=== PATIENT | male | born 1945 | race Caucasian/White ===

== ENCOUNTER 2018-06-20 19:02 | Inpatient (IN) | payer OTHER ==
[~2018-06-20] VITALS: Ht 162.6 cm; Wt 47.9 kg
[~2018-06-20 19:02] MED LIST: ASPI-496 PO; ATOR10TA9 PO; CEFD300C37 PO; CYAN50LO PO; DILT30TA33 PO; FERR325T18 PO; FINA5TAB4 PO; FOLI0.4T2 PO; HYDR12.517 PO; HYDR25TA6 PO; HYDR30SU4 PR; NITR100C6 PO; OMEP40CA6 PO; SULF1TAB24 PO; TAMS-11 PO; WARF2TAB99 PO
--- NOTE | 2018-06-20 19:23 | NUR ---
ON ARRIVAL PT HAS EYES OPEN BUT NOT TALKING. PT HAD BEEN GIVEN 200 MCG FENTYL AND 1.5 VERSED FOR PAIN. INITIAL BP 91 SYS. WHEN STIMULATING PT, BP INCREASE AND PT NOW ASKING WHAT IS GOING ON. REMAINS DROWSY. WILL CONTINUE TO MONITOR
[2018-06-20 19:29] LABS: BASOPHILS # (AUTO) 0.06 x10^3/uL (0-0.1); BASOPHILS % (AUTO) 1 % (0-1); EOSINOPHILS # (AUTO) 0.24 x10^3/uL (0-0.4); EOSINOPHILS % (AUTO) 3 % (1-7); LYMPHOCYTES # (AUTO) 0.85 x10^3/uL (1-3.4); LYMPHOCYTES % (AUTO) 10 % (22-44); MD NO; MEAN CORPUSCULAR HEMOGLOBIN 27.2 pg (27.5-34.5); MEAN CORPUSCULAR HGB CONC 32.7 g/dL (33.2-36.2); MEAN CORPUSCULAR VOLUME 83.3 fL (81-97); MEAN PLATELET VOLUME 6.9 fL (7.4-10.4); MONOCYTES # (AUTO) 0.42 x10^3/uL (0.2-0.8); MONOCYTES % (AUTO) 5 % (2-9); NEUTROPHILS # (AUTO) 6.71 x10^3/uL (1.8-6.8); NEUTROPHILS % (AUTO) 81 % (42-75); PLATELET COUNT 338 x10^3/uL (130-400); RED BLOOD COUNT 3.36 x10^6/uL (4.38-5.82); RED CELL DISTRIBUTION WIDTH 17.2 % (9.4-14.8)
[2018-06-20] MEDS ORDERED: SODIUM CHLORIDE FLUSH 10ML SYR IVF ONE (19:30)
--- NOTE | 2018-06-20 19:30 | NUR ---
KATE GAMA [phone] CALLED FOR UPDATE. NO XRAY RESULTS TO REPORT AT THIS TIME
--- NOTE | 2018-06-20 19:35 | NUR ---
TO XRAY. PT ABLE TO TELL SAUSAGE TIER HE HAS RIGHT HIP PAIN
[2018-06-20 19:38] LABS: INTERNATIONAL NORMALIZED RATIO 1.01 (0.93-1.1); PROTHROMBIN TIME 10.6 Seconds (9.6-11.5)
[2018-06-20 19:39] LABS: ALBUMIN 2.9 g/dL (3.4-5.0); ANION GAP 6 mmol/L (5-15); CALCIUM 8.6 mg/dL (8.5-10.1); CHLORIDE 108 mmol/L (98-107); CREATININE 0.92 mg/dL (0.7-1.3)
--- NOTE | 2018-06-20 20:40 | NUR ---
CHANGED COLLECTION BAG ON CATHETER FROM LEG BAG TO LARGER COLLECTION BAG. PT LYING ON RIGHT SIDE AND NOT WANTING TO BE MOVED
[2018-06-20] MEDS ORDERED: SENN1TAB94 PO (20:48)
[2018-06-20] MEDS ORDERED: METO25TA35 PO (20:48)
[2018-06-20] MEDS ORDERED: BUDE10.2 INH (20:48)
[2018-06-20] MEDS ORDERED: MULT-257 PO (20:48)
[2018-06-20] MEDS ORDERED: FERR324T5 PO (20:48)
[2018-06-20] MEDS ORDERED: SENN-177 PO (20:48)
--- NOTE | 2018-06-20 20:58 | NUR ---
CT COMPLETED. REPORT TO FLORA
--- NOTE | 2018-06-20 21:12 | NUR ---
report from crys sheppard. pt resting in room with eyes closed. ct complete. unable to complete med rec at this time. pt refusing to answer questions, only grumbling under breath. vss. no needs expressed. awaiting results.
[2018-06-20] MEDS ORDERED: SODIUM CHLORIDE FLUSH 10ML SYR IVF PRN (22:00)
--- NOTE | 2018-06-20 22:01 | NUR ---
REPORT FORM MEMO HINES TO ASSUME PT. CARE AT THIS TIME.
--- NOTE | 2018-06-20 22:17 | NUR ---
ASSISTED PT. TO REPOSITION TO AID IN COMFORT. PT. STATES "ALL I NEED IS A FEW HOT POCKETS AND I'LL BE JUST FINE". ASKED PT. ABOUT PAIN. PT. STATES "I HAVE A LITTLE PAIN BUT IF I GET A HOT POCKET THE PAIN WILL GO AWAY". PT. PROVIDED WITH CRACKERS AND STATES THIS IS FINE FOR NOW. AWAITING BED ASSIGNMENT UPSTAIRS. CALL LIGHT IN REACH. ALL SAFETY MEASURES OBSERVED.
--- NOTE | 2018-06-20 22:34 | NUR ---
SPOKE WITH PENELOPE, KATE AND CAREGIVER FOR PT. HE IS AWARE PT. TO BE ADMITTED TO HOSPITAL OVERNIGHT. PER PENELOPE PT. DOES WEAR 2L O2 AT HOME FOR COPD 28/09. PT. TO BE TRANSPORTED TO ROOM AFTER REPORT TO FLOOR RN.
--- NOTE | 2018-06-20 22:51 | NUR ---
REPORT TO [facility] BARILLAS. FLOOR READY FOR PT. TRANSPORT.
[2018-06-20 23:29] VITALS: BP 150/64
[2018-06-21] MEDS: MORPHINE SULFATE 4 MG/ML, 1ML IVPush PRN ×7 (00:29→21:26)
[2018-06-21 03:27] VITALS: BP 111/60
[2018-06-21] MEDS: FERROUS SULFATE 325 MG TABLET PO SCH ×2 (07:19→14:58)
[2018-06-21] MEDS: OMEPRAZOLE 20 MG CAPSULE.DR PO SCH (07:19)
[2018-06-21] MEDS: MULTIVITAMIN 1 TABLET PO SCH (07:19)
[2018-06-21 07:38] VITALS: BP 133/73
[2018-06-21] MEDS: LACTATED RINGERS 1,000 ML IV SCH ×2 (08:05→17:10)
[2018-06-21] MEDS: METOPROLOL TARTRATE 25 MG TABLET PO SCH (08:15)
[2018-06-21 10:39] LABS: CULTURE INDICATED? YES; MICROSCOPIC INDICATED
[2018-06-21 12:15] VITALS: BP 136/67
[2018-06-21] MEDS: BUDESONIDE 0.5 MG/2 ML INHA INH SCH ×3 (14:57→23:20)
[2018-06-21] MEDS: ALBUTEROL SULFATE 2.5 MG/3 ML NPPB SCH ×3 (14:57→22:20)
[2018-06-21 18:48] VITALS: BP 172/68
[2018-06-22] MEDS: MORPHINE SULFATE 4 MG/ML, 1ML IVPush PRN ×4 (00:19→16:12)
[2018-06-22 01:04] VITALS: BP 144/59
[2018-06-22] MEDS: LACTATED RINGERS 1,000 ML IV SCH ×2 (05:07→08:20)
[2018-06-22] MEDS: ALBUTEROL SULFATE 2.5 MG/3 ML NPPB SCH ×4 (06:00→21:00)
[2018-06-22] MEDS ORDERED: CEFTRIAXONE PMX 1GM/50ML 50 ML IV SCH (07:30)
[2018-06-22 07:44] VITALS: BP 154/58
[2018-06-22] MEDS: MULTIVITAMIN 1 TABLET PO SCH (08:21)
[2018-06-22] MEDS: FERROUS SULFATE 325 MG TABLET PO SCH ×2 (08:21→16:13)
[2018-06-22] MEDS: METOPROLOL TARTRATE 25 MG TABLET PO SCH (08:22)
[2018-06-22] MEDS: OMEPRAZOLE 20 MG CAPSULE.DR PO SCH (08:22)
[2018-06-22] MEDS: MAGNESIUM HYDROXIDE 8%, 30ML UDC PO SCH (10:30)
[2018-06-22] MEDS: DOCUSATE 100 MG CAPSULE PO SCH ×2 (11:20→22:38)
[2018-06-22 13:31] VITALS: BP 177/67
[2018-06-22] MEDS ORDERED: LABETALOL 5 MG/ML SYRINGE IVPush PRN (14:00)
[2018-06-22] MEDS ORDERED: hydrALAzine 20 MG/ML, 1ML IV PRN ×3 (14:00→19:00)
[2018-06-22 17:16] VITALS: BP 145/66
[2018-06-22] MEDS ORDERED: FENTANYL PF 100 MCG/2ML ONE ×2 (18:37→19:57)
[2018-06-22] MEDS ORDERED: EPHEDRINE 50 MG/ML, 1ML ONE (18:58)
[2018-06-22] MEDS ORDERED: CEFAZOLIN 1,000 MG ONE (18:58)
[2018-06-22] MEDS ORDERED: PROPOFOL 10 MG/ML, 20ML ONE (18:58)
[2018-06-22] MEDS ORDERED: FENTANYL PF 100 MCG/2ML IV PRN (19:00)
[2018-06-22] MEDS ORDERED: OXYcodone 5 MG/5 ML ORAL.SOL UDC PO PRN (19:00)
[2018-06-22] MEDS ORDERED: PROCHLORPERAZINE 5 MG/ML, 2ML IV PRN (19:00)
[2018-06-22] MEDS ORDERED: METOPROLOL 1 MG/ML, 5ML IV PRN (19:00)
[2018-06-22] MEDS ORDERED: HYDROmorphone 2 MG/ML, 1ML IVPush PRN ×2 (19:00→22:00)
[2018-06-22] MEDS ORDERED: DIPHENHYDRAMINE 50 MG/ML, 1ML IVPush PRN (19:00)
[2018-06-22] MEDS ORDERED: LABETALOL 5 MG/ML SYRINGE IV PRN (19:00)
[2018-06-22] MEDS ORDERED: HALOPERIDOL 5 MG/ML IV PRN (19:00)
[2018-06-22] MEDS ORDERED: PROMETHAZINE 25 MG/ML, 1ML IV PRN (19:00)
[2018-06-22] MEDS ORDERED: MEPERIDINE/PF 25MG/0.5ML IVPush PRN (19:00)
[2018-06-22] MEDS ORDERED: OXYcodone 5 MG/5 ML ORAL.SOL UDC ONE (19:56)
[2018-06-22] MEDS: BUDESONIDE 0.5 MG/2 ML INHA INH SCH (21:00)
[2018-06-22] MEDS ORDERED: METOPROLOL TARTRATE 25 MG TABLET PO SCH (21:00)
[2018-06-22] MEDS ORDERED: ONDANSETRON 2MG/ML, 2ML IV PRN (22:00)
[2018-06-22] MEDS ORDERED: OXYcodone/APAP 5/325MG TABLET PO PRN (22:00)
[2018-06-22] MEDS ORDERED: CEFAZOLIN PMX 1GM/50ML 50 ML IVPB SCH (22:00)
[2018-06-22] MEDS ORDERED: ASPI-496 PO (22:14)
[2018-06-22] MEDS: KETOROLAC 30 MG/1 ML IV SCH (22:39)
[2018-06-23 00:29] VITALS: BP 100/60
[2018-06-23] MEDS: CEFAZOLIN PMX 1GM/50ML 50 ML IVPB SCH ×2 (03:23→11:42)
[2018-06-23 04:23] VITALS: BP 121/62
[2018-06-23] MEDS: ENOXAPARIN 40 MG/0.4 ML SQ SCH (06:07)
[2018-06-23] MEDS: KETOROLAC 30 MG/1 ML IV SCH ×2 (06:07→14:25)
[2018-06-23 06:16] LABS: BASOPHILS # (AUTO) 0.02 x10^3/uL (0-0.1); BASOPHILS % (AUTO) 0 % (0-1); EOSINOPHILS # (AUTO) 0.37 x10^3/uL (0-0.4); EOSINOPHILS % (AUTO) 5 % (1-7); LYMPHOCYTES # (AUTO) 0.59 x10^3/uL (1-3.4); LYMPHOCYTES % (AUTO) 8 % (22-44); MD NO; MEAN CORPUSCULAR HEMOGLOBIN 26.9 pg (27.5-34.5); MEAN CORPUSCULAR HGB CONC 32.9 g/dL (33.2-36.2); MEAN CORPUSCULAR VOLUME 81.8 fL (81-97); MEAN PLATELET VOLUME 7.4 fL (7.4-10.4); MONOCYTES # (AUTO) 0.29 x10^3/uL (0.2-0.8); MONOCYTES % (AUTO) 4 % (2-9); NEUTROPHILS # (AUTO) 6.67 x10^3/uL (1.8-6.8); NEUTROPHILS % (AUTO) 84 % (42-75); PLATELET COUNT 307 x10^3/uL (130-400); RED BLOOD COUNT 3.01 x10^6/uL (4.38-5.82); RED CELL DISTRIBUTION WIDTH 16.6 % (9.4-14.8)
[2018-06-23 06:25] LABS: CHLORIDE 104 mmol/L (98-107)
[2018-06-23 06:34] LABS: ALANINE AMINOTRANSFERASE 19 U/L (12-78); ALBUMIN 2.3 g/dL (3.4-5.0); ALKALINE PHOSPHATASE 78 U/L (45-117); ANION GAP 6 mmol/L (5-15); BILIRUBIN,TOTAL 0.3 mg/dL (0.2-1.0); CALCIUM 8.5 mg/dL (8.5-10.1); CREATININE 1.08 mg/dL (0.7-1.3); TOTAL PROTEIN 5.4 g/dL (6.4-8.2)
[2018-06-23] MEDS: ALBUTEROL SULFATE 2.5 MG/3 ML NPPB SCH ×4 (06:55→19:10)
[2018-06-23] MEDS: BUDESONIDE 0.5 MG/2 ML INHA INH SCH ×2 (06:55→19:10)
[2018-06-23 08:40] VITALS: BP 127/61
[2018-06-23] MEDS: SODIUM CHLORIDE FLUSH 10ML SYR IVF SCH ×2 (09:00→21:41)
[2018-06-23 09:09] LABS: THYROID STIMULATING HORMONE 3.35 mIU/L (0.358-3.740)
[2018-06-23] MEDS: MORPHINE SULFATE 4 MG/ML, 1ML IVPush PRN (09:10)
[2018-06-23] MEDS: MULTIVITAMIN 1 TABLET PO SCH (09:38)
[2018-06-23] MEDS: DOCUSATE 100 MG CAPSULE PO SCH ×2 (09:38→21:38)
[2018-06-23] MEDS: AMOXICILLIN/CLAV 875-125MG TABLET PO SCH ×2 (09:38→21:38)
[2018-06-23] MEDS: ASPIRIN 81 MG TABLET EC PO SCH ×2 (09:38→21:40)
[2018-06-23] MEDS: FERROUS SULFATE 325 MG TABLET PO SCH ×2 (09:38→18:56)
[2018-06-23] MEDS: MAGNESIUM HYDROXIDE 8%, 30ML UDC PO SCH (09:39)
[2018-06-23] MEDS: OMEPRAZOLE 20 MG CAPSULE.DR PO SCH (09:39)
[2018-06-23] MEDS: LACTATED RINGERS 1,000 ML IV SCH (11:42)
[2018-06-23] MEDS: METOPROLOL TARTRATE 25 MG TABLET PO SCH ×2 (11:49→21:39)
[2018-06-23 14:59] VITALS: BP 130/65
[2018-06-23 20:29] VITALS: BP 152/73
[2018-06-23] MEDS: HYDROcodone/APAP 7.5-325MG/15ML UDC PO PRN (21:39)
[2018-06-24 01:03] VITALS: BP 148/75
[2018-06-24 05:23] LABS: BASOPHILS # (AUTO) 0.02 x10^3/uL (0-0.1); BASOPHILS % (AUTO) 0 % (0-1); EOSINOPHILS # (AUTO) 0.47 x10^3/uL (0-0.4); EOSINOPHILS % (AUTO) 6 % (1-7); LYMPHOCYTES # (AUTO) 0.77 x10^3/uL (1-3.4); LYMPHOCYTES % (AUTO) 9 % (22-44); MD NO; MEAN CORPUSCULAR HEMOGLOBIN 27.2 pg (27.5-34.5); MEAN CORPUSCULAR HGB CONC 32.7 g/dL (33.2-36.2); MEAN CORPUSCULAR VOLUME 83.1 fL (81-97); MEAN PLATELET VOLUME 7.5 fL (7.4-10.4); MONOCYTES # (AUTO) 0.26 x10^3/uL (0.2-0.8); MONOCYTES % (AUTO) 3 % (2-9); NEUTROPHILS # (AUTO) 6.98 x10^3/uL (1.8-6.8); NEUTROPHILS % (AUTO) 82 % (42-75); PLATELET COUNT 358 x10^3/uL (130-400); RED BLOOD COUNT 3.17 x10^6/uL (4.38-5.82); RED CELL DISTRIBUTION WIDTH 16.8 % (9.4-14.8)
[2018-06-24] MEDS: HYDROcodone/APAP 7.5-325MG/15ML UDC PO PRN ×2 (05:23→16:16)
[2018-06-24] MEDS: ENOXAPARIN 40 MG/0.4 ML SQ SCH (05:23)
[2018-06-24] MEDS: ALBUTEROL SULFATE 2.5 MG/3 ML NPPB SCH ×3 (06:40→15:15)
[2018-06-24] MEDS: BUDESONIDE 0.5 MG/2 ML INHA INH SCH (06:40)
[2018-06-24 07:08] VITALS: BP 123/62
[2018-06-24] MEDS ORDERED: BISACODYL 10 MG SUPP PR PRN (08:30)
[2018-06-24] MEDS ORDERED: ARTIFICIAL TEARS 15 DROP/ML BOTTLE EACHEYE PRN (08:30)
[2018-06-24] MEDS: SODIUM CHLORIDE FLUSH 10ML SYR IVF SCH (09:00)
[2018-06-24 09:08] VITALS: BP 162/63
[2018-06-24] MEDS: FERROUS SULFATE 325 MG TABLET PO SCH ×2 (09:10→16:16)
[2018-06-24] MEDS: METOPROLOL TARTRATE 25 MG TABLET PO SCH (09:10)
[2018-06-24] MEDS: ASPIRIN 81 MG TABLET EC PO SCH (09:10)
[2018-06-24] MEDS: MAGNESIUM HYDROXIDE 8%, 30ML UDC PO SCH (09:10)
[2018-06-24] MEDS: DOCUSATE 100 MG CAPSULE PO SCH (09:10)
[2018-06-24] MEDS: AMOXICILLIN/CLAV 875-125MG TABLET PO SCH (09:10)
[2018-06-24] MEDS: GUAIFENESIN 200 MG TABLET PO SCH ×2 (09:18→16:16)
[2018-06-24] MEDS ORDERED: ACET325T21 PO (11:57)
[2018-06-24] MEDS ORDERED: GUAI200T3 PO (11:57)
[2018-06-24] MEDS ORDERED: AMOX1TAB12 PO (11:57)
[2018-06-24] MEDS ORDERED: ASPI-496 PO (12:03)
[2018-06-24] MEDS: MULTIVITAMIN 1 TABLET PO SCH (12:51)
[2018-06-24] MEDS: OMEPRAZOLE 20 MG CAPSULE.DR PO SCH (12:52)
[2018-06-24 14:49] VITALS: BP 160/73
== END 2018-06-24 17:00 | DRG 480 ==
LOC: ED 21:50 → EDIP 21:51 → 4NOR 23:30
PROVIDERS: ADMIT Family Medicine; ATTEND Family Medicine
PROC: 0QS634Z Reposition Right Upper Femur with Internal Fixation Device, Percutaneous Approach (ICD-10-PCS; principal; 2018-06-22 19:00)
DX: S72.011A Unspecified intracapsular fracture of right femur, initial encounter for closed fracture (principal); E43 Unspecified severe protein-calorie malnutrition; I69.354 Hemiplegia and hemiparesis following cerebral infarction affecting left non-dominant side; N39.0 Urinary tract infection, site not specified; R64 Cachexia; Z68.1 Body mass index [BMI] 19.9 or less, adult; F17.200 Nicotine dependence, unspecified, uncomplicated; J44.9 Chronic obstructive pulmonary disease, unspecified; I11.9 Hypertensive heart disease without heart failure; K59.00 Constipation, unspecified; E86.0 Dehydration; B96.20 Unspecified Escherichia coli [E. coli] as the cause of diseases classified elsewhere; B95.2 Enterococcus as the cause of diseases classified elsewhere; W18.30XA Fall on same level, unspecified, initial encounter; Z87.442 Personal history of urinary calculi; Y93.89 Activity, other specified; Y92.89 Other specified places as the place of occurrence of the external cause; Y99.8 Other external cause status
CPT/HCPCS: 36415; 71045; 76000; 80048; 80053; 81001; 82040; 82607; 82728; 83540; 83550; 84443; 85025; 85610; 85730; 87040; 87077; 87086; 87186; 93005; 94640; 99285; C1713; G0378; J0690; J0696; J1650; J1885; J2704; J3010; J7613; J7626; J0360; J7120

== ENCOUNTER 2018-07-29 10:21 | Inpatient (IN) | payer OTHER ==
[~2018-07-29] VITALS: Ht 170.2 cm; Wt 44.1 kg
[~2018-07-29 10:21] MED LIST changes: +ACET325T21 PO; +AMOX1TAB12 PO; +BUDE10.2 INH; +FERR324T5 PO; +GUAI200T3 PO; +METO25TA35 PO; +MULT-257 PO; +SENN-177 PO; +SENN1TAB94 PO
--- NOTE | 2018-07-29 10:40 | NUR ---
73 YO MAN BROUGHT IN BY EMS FROM [place]. PER REPORT, PT HERE WITH ABN LABS, HEMO OF 6.9. NO ACUTE DISTRESS. PT ARRIVED WITH BUNCH TO DOWN DRAIN.
[2018-07-29] MEDS ORDERED: SODIUM CHLORIDE 0.9% 1,000ML IVBOLUS ONE (11:30)
[2018-07-29] MEDS ORDERED: SODIUM CHLORIDE FLUSH 10ML SYR IVF ONE (11:30)
[2018-07-29] MEDS ORDERED: PANTOPRAZOLE 40 MG IV IVPush ONE (11:30)
[2018-07-29] MEDS ORDERED: FAMOTIDINE 20 MG/2 ML IVPush ONE (11:30)
[2018-07-29 12:15] LABS: BASOPHILS # (AUTO) 0.04 x10^3/uL (0-0.1); BASOPHILS % (AUTO) 1 % (0-1); EOSINOPHILS # (AUTO) 0.08 x10^3/uL (0-0.4); EOSINOPHILS % (AUTO) 1 % (1-7); LYMPHOCYTES # (AUTO) 1.12 x10^3/uL (1-3.4); LYMPHOCYTES % (AUTO) 14 % (22-44); MD NO; MEAN CORPUSCULAR HEMOGLOBIN 25.7 pg (27.5-34.5); MEAN CORPUSCULAR HGB CONC 31.8 g/dL (33.2-36.2); MEAN CORPUSCULAR VOLUME 80.6 fL (81-97); MEAN PLATELET VOLUME 6.2 fL (7.4-10.4); MONOCYTES # (AUTO) 0.34 x10^3/uL (0.2-0.8); MONOCYTES % (AUTO) 4 % (2-9); NEUTROPHILS # (AUTO) 6.52 x10^3/uL (1.8-6.8); NEUTROPHILS % (AUTO) 81 % (42-75); PLATELET COUNT 562 x10^3/uL (130-400); RED BLOOD COUNT 3.04 x10^6/uL (4.38-5.82); RED CELL DISTRIBUTION WIDTH 18.8 % (9.4-14.8)
[2018-07-29] MEDS ORDERED: FAMOTIDINE 20 MG/2 ML ONE (12:15)
[2018-07-29] MEDS ORDERED: PANTOPRAZOLE 40 MG IV ONE (12:15)
[2018-07-29 12:22] LABS: INTERNATIONAL NORMALIZED RATIO 0.97 (0.93-1.1); PROTHROMBIN TIME 10.2 Seconds (9.6-11.5)
[2018-07-29 12:24] LABS: ALANINE AMINOTRANSFERASE 23 U/L (12-78); ALBUMIN 2.7 g/dL (3.4-5.0); ANION GAP 6 mmol/L (5-15); CALCIUM 8.9 mg/dL (8.5-10.1); CHLORIDE 106 mmol/L (98-107); CREATININE 0.93 mg/dL (0.7-1.3)
[2018-07-29 12:26] LABS: ALKALINE PHOSPHATASE 74 U/L (45-117); TOTAL PROTEIN 6.3 g/dL (6.4-8.2)
[2018-07-29 12:33] LABS: BILIRUBIN,TOTAL < 0.1 mg/dL (0.2-1.0)
--- NOTE | 2018-07-29 12:36 | NUR ---
PT RESTING IN BED, DENIES PAIN. NS BOLUS RUNNING. NO ACUTE DISTRESS NOTED. PT DENIES ANY NEEDS AT THIS TIME.
--- NOTE | 2018-07-29 13:14 | NUR ---
break RN note: report received from [facility] Min. pt assisted to have a BM on bedpan, kathy care provided after. pt awake, alert, resps even and unlabored. vss. call light in reach. awaiting admit and bed assignment at this time.
--- NOTE | 2018-07-29 13:35 | NUR ---
REPORT GIVEN TO PRIMARY RN'S KAMERON
[2018-07-29] MEDS ORDERED: NA P133E2 PR (13:56)
[2018-07-29] MEDS ORDERED: GUAI400T66 PO (13:56)
[2018-07-29] MEDS ORDERED: MAGN400O7 PO (13:56)
[2018-07-29] MEDS ORDERED: CYANOCOBALAM PO (13:56)
[2018-07-29] MEDS ORDERED: CYANOCOBALAMIN IM (13:56)
[2018-07-29] MEDS ORDERED: CHOL200074 PO (13:56)
[2018-07-29] MEDS ORDERED: ASCO500C2 PO (13:56)
[2018-07-29] MEDS ORDERED: TRAM50TA2 PO (13:56)
[2018-07-29] MEDS ORDERED: FLUT1AER PO (13:56)
[2018-07-29] MEDS ORDERED: [UNRECOGNIZED DRUG - OTHER] PO (13:56)
[2018-07-29] MEDS ORDERED: FAMO-79 PO (13:56)
[2018-07-29] MEDS ORDERED: BISA10SU54 PR (13:56)
[2018-07-29] MEDS ORDERED: CALCIUM PO (13:56)
[2018-07-29] MEDS ORDERED: ACET325C5 PO (13:56)
[2018-07-29] MEDS ORDERED: NALO0.4D2 IM (13:56)
[2018-07-29] MEDS ORDERED: ACET325T14 PO (13:56)
--- NOTE | 2018-07-29 14:32 | NUR ---
REPORT GIVEN TO AMELIA ON ONC. PT GOING TO 337.
[2018-07-29 15:00] VITALS: BP 115/55
[2018-07-29] MEDS ORDERED: ACETAMINOPHEN 325 MG TABLET PO PRN (15:00)
[2018-07-29] MEDS ORDERED: ONDANSETRON ODT 4 MG PO PRN (15:00)
[2018-07-29] MEDS ORDERED: ONDANSETRON 2MG/ML, 2ML IVPush PRN (15:00)
[2018-07-29] MEDS: LACTOBACILLUS CHEW TABLET PO SCH ×3 (15:22→21:15)
[2018-07-29 17:00] VITALS: BP 126/52
[2018-07-29] MEDS: CALCIUM CARBONATE 500 MG TABLET PO SCH (18:32)
[2018-07-29] MEDS: FERROUS SULFATE 325 MG TABLET PO SCH (18:32)
[2018-07-29] MEDS: SODIUM CHLORIDE 0.9% 1,000 ML IV SCH (18:32)
[2018-07-29 19:07] VITALS: BP 129/57
[2018-07-29] MEDS: BUDESONIDE 0.5 MG/2 ML INHA NPPB SCH (20:29)
[2018-07-29] MEDS ORDERED: CYANOCOBALAMIN 1000 MCG IM SCH (21:00)
[2018-07-29] MEDS: CYANOCOBALAMIN 1,000 MCG TABLET PO SCH (21:15)
[2018-07-29] MEDS: ATORVASTATIN 10 MG TABLET PO SCH (21:15)
[2018-07-29] MEDS: SENNA/DOCUSATE TABLET PO SCH (21:15)
[2018-07-30 01:34] VITALS: BP 142/60
[2018-07-30 05:59] LABS: BASOPHILS # (AUTO) 0.04 x10^3/uL (0-0.1); BASOPHILS % (AUTO) 0 % (0-1); EOSINOPHILS # (AUTO) 0.12 x10^3/uL (0-0.4); EOSINOPHILS % (AUTO) 1 % (1-7); LYMPHOCYTES # (AUTO) 1.65 x10^3/uL (1-3.4); LYMPHOCYTES % (AUTO) 18 % (22-44); MD NO; MEAN CORPUSCULAR HEMOGLOBIN 25.7 pg (27.5-34.5); MEAN CORPUSCULAR HGB CONC 31.8 g/dL (33.2-36.2); MEAN CORPUSCULAR VOLUME 80.7 fL (81-97); MEAN PLATELET VOLUME 6.6 fL (7.4-10.4); MONOCYTES # (AUTO) 0.41 x10^3/uL (0.2-0.8); MONOCYTES % (AUTO) 4 % (2-9); NEUTROPHILS % (AUTO) 76 % (42-75); PLATELET COUNT 583 x10^3/uL (130-400); RED BLOOD COUNT 3.38 x10^6/uL (4.38-5.82); RED CELL DISTRIBUTION WIDTH 18.7 % (9.4-14.8)
[2018-07-30 06:03] LABS: ANION GAP 5 mmol/L (5-15); CALCIUM 9.5 mg/dL (8.5-10.1); CHLORIDE 108 mmol/L (98-107); CREATININE 0.71 mg/dL (0.7-1.3)
[2018-07-30 07:08] VITALS: BP 178/61
[2018-07-30] MEDS: LACTOBACILLUS CHEW TABLET PO SCH ×4 (08:28→20:49)
[2018-07-30 08:33] VITALS: BP 191/63
[2018-07-30] MEDS: MULTIVITAMIN 1 TABLET PO SCH (08:34)
[2018-07-30] MEDS: SENNA/DOCUSATE TABLET PO SCH ×2 (08:34→20:50)
[2018-07-30] MEDS: PANTOPROZOLE 40MG TABLET PO SCH (08:34)
[2018-07-30] MEDS: CALCIUM CARBONATE 500 MG TABLET PO SCH (08:34)
[2018-07-30] MEDS: CHOLECALCIFEROL 1,000 UNIT TABLET PO SCH (08:34)
[2018-07-30] MEDS: ASCORBIC ACID 500 MG TABLET PO SCH (08:34)
[2018-07-30] MEDS: CALCITONIN NASAL 200 UNITS/0.09ML, 3.7ML NAS SCH (08:34)
[2018-07-30] MEDS: BISACODYL 10 MG SUPP PR SCH (08:35)
[2018-07-30] MEDS: BUDESONIDE 0.5 MG/2 ML INHA NPPB SCH ×2 (09:00→18:46)
[2018-07-30] MEDS: ALBUTEROL/IPRATROPIUM 2.5MG/0.5MG, 3 ML HHN SCH ×4 (09:00→18:46)
[2018-07-30 09:30] VITALS: BP 178/56
[2018-07-30] MEDS ORDERED: ALBUTEROL SULFATE 2.5MG/0.5ML ONE (09:39)
[2018-07-30 12:18] VITALS: BP 152/68
[2018-07-30] MEDS: SODIUM CHLORIDE 0.9% 1,000 ML IV SCH (15:35)
[2018-07-30 19:01] VITALS: BP 147/71
[2018-07-30] MEDS: CYANOCOBALAMIN 1,000 MCG TABLET PO SCH (20:50)
[2018-07-30] MEDS: ATORVASTATIN 10 MG TABLET PO SCH (20:50)
[2018-07-31 01:51] VITALS: BP 173/65
[2018-07-31] MEDS: ALBUTEROL/IPRATROPIUM 2.5MG/0.5MG, 3 ML HHN SCH ×2 (02:35→10:08)
[2018-07-31 04:26] LABS: BASOPHILS # (AUTO) 0.07 x10^3/uL (0-0.1); BASOPHILS % (AUTO) 1 % (0-1); EOSINOPHILS # (AUTO) 0.04 x10^3/uL (0-0.4); EOSINOPHILS % (AUTO) 1 % (1-7); LYMPHOCYTES # (AUTO) 0.93 x10^3/uL (1-3.4); LYMPHOCYTES % (AUTO) 10 % (22-44); MD NO; MEAN CORPUSCULAR HEMOGLOBIN 25.2 pg (27.5-34.5); MEAN CORPUSCULAR HGB CONC 31.1 g/dL (33.2-36.2); MEAN CORPUSCULAR VOLUME 80.9 fL (81-97); MEAN PLATELET VOLUME 6.5 fL (7.4-10.4); MONOCYTES # (AUTO) 0.42 x10^3/uL (0.2-0.8); MONOCYTES % (AUTO) 4 % (2-9); NEUTROPHILS # (AUTO) 8.25 x10^3/uL (1.8-6.8); NEUTROPHILS % (AUTO) 85 % (42-75); PLATELET COUNT 535 x10^3/uL (130-400); RED BLOOD COUNT 3.02 x10^6/uL (4.38-5.82); RED CELL DISTRIBUTION WIDTH 18.9 % (9.4-14.8)
[2018-07-31 04:39] LABS: CHLORIDE 108 mmol/L (98-107)
[2018-07-31 04:40] LABS: ANION GAP 6 mmol/L (5-15); CALCIUM 8.8 mg/dL (8.5-10.1); CREATININE 0.81 mg/dL (0.7-1.3)
[2018-07-31 06:52] VITALS: BP 156/74
[2018-07-31] MEDS: BISACODYL 10 MG SUPP PR SCH (09:00)
[2018-07-31] MEDS: CHOLECALCIFEROL 1,000 UNIT TABLET PO SCH (09:15)
[2018-07-31] MEDS: LACTOBACILLUS CHEW TABLET PO SCH ×3 (09:15→21:01)
[2018-07-31] MEDS: CALCITONIN NASAL 200 UNITS/0.09ML, 3.7ML NAS SCH (09:15)
[2018-07-31] MEDS: ASCORBIC ACID 500 MG TABLET PO SCH (09:16)
[2018-07-31] MEDS: SENNA/DOCUSATE TABLET PO SCH ×2 (09:16→21:00)
[2018-07-31] MEDS: MULTIVITAMIN 1 TABLET PO SCH (09:16)
[2018-07-31] MEDS: CALCIUM CARBONATE 500 MG TABLET PO SCH (09:16)
[2018-07-31] MEDS: PANTOPROZOLE 40MG TABLET PO SCH ×2 (09:16→21:00)
[2018-07-31] MEDS: BUDESONIDE 0.5 MG/2 ML INHA NPPB SCH (10:08)
[2018-07-31 14:08] VITALS: BP 99/55
[2018-07-31] MEDS: SODIUM CHLORIDE 0.9% 1,000 ML IV SCH (15:00)
[2018-07-31] MEDS: FERROUS SULFATE 325 MG TABLET PO SCH (16:36)
[2018-07-31 18:47] VITALS: BP 131/55
[2018-07-31] MEDS: ATORVASTATIN 10 MG TABLET PO SCH (21:00)
[2018-07-31] MEDS: CYANOCOBALAMIN 1,000 MCG TABLET PO SCH (21:01)
[2018-07-31 22:42] LABS: OCCULT BLOOD POSITIVE (NEGATIVE)
[2018-08-01 00:32] VITALS: BP 137/59
[2018-08-01 07:25] VITALS: BP 153/66
[2018-08-01 08:46] LABS: MEAN CORPUSCULAR HEMOGLOBIN 24.9 pg (27.5-34.5); MEAN CORPUSCULAR VOLUME 80.4 fL (81-97); MEAN PLATELET VOLUME 6.2 fL (7.4-10.4); PLATELET COUNT 461 x10^3/uL (130-400); RED BLOOD COUNT 3.04 x10^6/uL (4.38-5.82); RED CELL DISTRIBUTION WIDTH 19.1 % (9.4-14.8)
[2018-08-01 08:54] LABS: ALBUMIN 2.8 g/dL (3.4-5.0); ANION GAP 4 mmol/L (5-15); CALCIUM 8.6 mg/dL (8.5-10.1); CHLORIDE 108 mmol/L (98-107); CREATININE 0.74 mg/dL (0.7-1.3)
[2018-08-01] MEDS: SENNA/DOCUSATE TABLET PO SCH ×2 (09:00→20:19)
[2018-08-01] MEDS: BISACODYL 10 MG SUPP PR SCH (09:00)
[2018-08-01 09:11] LABS: BASOPHILS # (AUTO) 0.04 x10^3/uL (0-0.1); BASOPHILS % (AUTO) 1 % (0-1); EOSINOPHILS # (AUTO) 0.09 x10^3/uL (0-0.4); EOSINOPHILS % (AUTO) 2 % (1-7); LYMPHOCYTES # (AUTO) 1.24 x10^3/uL (1-3.4); LYMPHOCYTES % (AUTO) 21 % (22-44); MD MORPH REVIEW ONLY; MONOCYTES # (AUTO) 0.44 x10^3/uL (0.2-0.8); MONOCYTES % (AUTO) 7 % (2-9); NEUTROPHILS # (AUTO) 4.17 x10^3/uL (1.8-6.8); NEUTROPHILS % (AUTO) 70 % (42-75)
[2018-08-01 09:13] LABS: <PLATELET ESTIMATE> INCREASED; ANISOCYTOSIS 1+; HYPOCHROMIA 1+; MICROCYTOSIS 1+; OVALOCYTES 1+
[2018-08-01 09:14] LABS: SMALL PLATELETS 1+
[2018-08-01] MEDS: LACTOBACILLUS CHEW TABLET PO SCH ×3 (09:48→20:20)
[2018-08-01] MEDS: MULTIVITAMIN 1 TABLET PO SCH (09:48)
[2018-08-01] MEDS: PANTOPROZOLE 40MG TABLET PO SCH ×2 (09:48→20:20)
[2018-08-01] MEDS: CALCIUM CARBONATE 500 MG TABLET PO SCH (09:48)
[2018-08-01] MEDS: CHOLECALCIFEROL 1,000 UNIT TABLET PO SCH (09:48)
[2018-08-01] MEDS: ASCORBIC ACID 500 MG TABLET PO SCH (09:49)
[2018-08-01] MEDS: CALCITONIN NASAL 200 UNITS/0.09ML, 3.7ML NAS SCH (09:56)
[2018-08-01 13:06] VITALS: BP 149/67
[2018-08-01] MEDS: SODIUM CHLORIDE 0.9% 1,000 ML IV SCH (15:00)
[2018-08-01 19:34] VITALS: BP 168/64
[2018-08-01] MEDS: ATORVASTATIN 10 MG TABLET PO SCH (20:19)
[2018-08-01] MEDS: CYANOCOBALAMIN 1,000 MCG TABLET PO SCH (20:19)
[2018-08-01] MEDS ORDERED: DIPHENHYDRAMINE 50 MG CAPSULE PO ONE (23:00)
[2018-08-02 01:04] VITALS: BP 159/57
[2018-08-02 07:30] LABS: BASOPHILS # (AUTO) 0.04 x10^3/uL (0-0.1); BASOPHILS % (AUTO) 1 % (0-1); EOSINOPHILS # (AUTO) 0.15 x10^3/uL (0-0.4); EOSINOPHILS % (AUTO) 3 % (1-7); LYMPHOCYTES # (AUTO) 1.09 x10^3/uL (1-3.4); LYMPHOCYTES % (AUTO) 20 % (22-44); MD NO; MEAN CORPUSCULAR HEMOGLOBIN 24.6 pg (27.5-34.5); MEAN CORPUSCULAR HGB CONC 30.5 g/dL (33.2-36.2); MEAN CORPUSCULAR VOLUME 80.6 fL (81-97); MEAN PLATELET VOLUME 6.5 fL (7.4-10.4); MONOCYTES # (AUTO) 0.42 x10^3/uL (0.2-0.8); MONOCYTES % (AUTO) 8 % (2-9); NEUTROPHILS # (AUTO) 3.76 x10^3/uL (1.8-6.8); NEUTROPHILS % (AUTO) 69 % (42-75); PLATELET COUNT 403 x10^3/uL (130-400); RED BLOOD COUNT 3.06 x10^6/uL (4.38-5.82); RED CELL DISTRIBUTION WIDTH 18.6 % (9.4-14.8)
[2018-08-02 07:35] VITALS: BP 145/67
[2018-08-02] MEDS: BISACODYL 10 MG SUPP PR SCH (09:00)
[2018-08-02] MEDS: SENNA/DOCUSATE TABLET PO SCH ×2 (09:01→20:15)
[2018-08-02] MEDS: LACTOBACILLUS CHEW TABLET PO SCH ×3 (09:01→20:15)
[2018-08-02] MEDS: PANTOPROZOLE 40MG TABLET PO SCH ×2 (09:02→20:15)
[2018-08-02] MEDS: ASCORBIC ACID 500 MG TABLET PO SCH (09:02)
[2018-08-02] MEDS: CHOLECALCIFEROL 1,000 UNIT TABLET PO SCH (09:02)
[2018-08-02] MEDS: CALCIUM CARBONATE 500 MG TABLET PO SCH (09:02)
[2018-08-02] MEDS: CALCITONIN NASAL 200 UNITS/0.09ML, 3.7ML NAS SCH (09:16)
[2018-08-02] MEDS: MULTIVITAMIN 1 TABLET PO SCH (09:16)
[2018-08-02] MEDS: SODIUM CHLORIDE 0.9% 1,000 ML IV SCH (11:00)
[2018-08-02 12:20] VITALS: BP 148/73
[2018-08-02] MEDS: FERROUS SULFATE 325 MG TABLET PO SCH (15:49)
[2018-08-02 19:10] VITALS: BP 169/66
[2018-08-02] MEDS: CYANOCOBALAMIN 1,000 MCG TABLET PO SCH (20:15)
[2018-08-02] MEDS: ATORVASTATIN 10 MG TABLET PO SCH (20:16)
[2018-08-03 00:41] VITALS: BP 157/62
[2018-08-03] MEDS: SODIUM CHLORIDE 0.9% 1,000 ML IV SCH (06:13)
[2018-08-03 07:38] VITALS: BP 182/66
[2018-08-03] MEDS: CHOLECALCIFEROL 1,000 UNIT TABLET PO SCH (08:30)
[2018-08-03] MEDS: SENNA/DOCUSATE TABLET PO SCH (08:31)
[2018-08-03] MEDS: LACTOBACILLUS CHEW TABLET PO SCH ×2 (08:31→16:00)
[2018-08-03] MEDS: MULTIVITAMIN 1 TABLET PO SCH (08:31)
[2018-08-03] MEDS: ASCORBIC ACID 500 MG TABLET PO SCH (08:31)
[2018-08-03] MEDS: CALCIUM CARBONATE 500 MG TABLET PO SCH (08:31)
[2018-08-03] MEDS: PANTOPROZOLE 40MG TABLET PO SCH (08:31)
[2018-08-03] MEDS: CALCITONIN NASAL 200 UNITS/0.09ML, 3.7ML NAS SCH (08:34)
[2018-08-03] MEDS: BISACODYL 10 MG SUPP PR SCH (08:36)
[2018-08-03] MEDS ORDERED: PANT40TA5 PO (11:41)
[2018-08-03] MEDS ORDERED: AMLODIPINE 5 MG TABLET PO ONE (12:00)
[2018-08-03 13:03] VITALS: BP 150/63
== END 2018-08-03 16:07 | DRG 378 ==
LOC: ED 11:01 → EDIP 12:50 → 3NW 14:35 → 4WST 17:07
PROVIDERS: ADMIT Internal Medicine; ATTEND Internal Medicine
DX: K92.2 Gastrointestinal hemorrhage, unspecified (principal); E44.0 Moderate protein-calorie malnutrition; J96.10 Chronic respiratory failure, unspecified whether with hypoxia or hypercapnia; Z68.1 Body mass index [BMI] 19.9 or less, adult; I69.354 Hemiplegia and hemiparesis following cerebral infarction affecting left non-dominant side; D50.0 Iron deficiency anemia secondary to blood loss (chronic); E78.5 Hyperlipidemia, unspecified; I10 Essential (primary) hypertension; I25.10 Atherosclerotic heart disease of native coronary artery without angina pectoris; I73.9 Peripheral vascular disease, unspecified; J44.9 Chronic obstructive pulmonary disease, unspecified; K21.9 Gastro-esophageal reflux disease without esophagitis; N32.0 Bladder-neck obstruction; R62.7 Adult failure to thrive; Z99.81 Dependence on supplemental oxygen; Z87.440 Personal history of urinary (tract) infections
CPT/HCPCS: 36415; 80048; 80053; 80069; 82272; 82274; 82728; 83540; 83550; 83605; 85025; 85610; 85730; 87338; 94640; 96361; 96374; 96375; G0378; J7620; J7626; C9113; J3490; J7030

== ENCOUNTER 2020-05-24 06:03 | Inpatient (IN) | payer OTHER ==
[~2020-05-24] VITALS: Ht 152.4 cm; Wt 44.4 kg
[~2020-05-24 06:03] MED LIST changes: +ACET-2274 PO; +ACET325C6 PO; +ACET325T14 PO; -ACET325T21 PO; +ASCO500C2 PO; +BISA10SU54 PR; +CALCIUM PO; +CHOL200074 PO; +CYANOCOBALAM PO; +CYANOCOBALAMIN IM; +FAMO-79 PO; +FLUT1AER PO; -FOLI0.4T2 PO; +FOLI0.4T5 PO; -GUAI200T3 PO; +GUAI200T37 PO; +GUAI400T81 PO; +MAGN400O7 PO; +NA P133E2 PR; +NALO0.4D2 IM; +OMEP40CA42 PO; -OMEP40CA6 PO; +PANT40TA6 PO; +TRAM50TA2 PO; +[UNRECOGNIZED DRUG - OTHER] PO
[2020-05-24] MEDS ORDERED: ASPIRIN 81 MG TABLET CHEW ONE (06:30)
[2020-05-24] MEDS ORDERED: ASPIRIN 81 MG TABLET CHEW PO ONE (06:30)
[2020-05-24] MEDS ORDERED: SODIUM CHLORIDE FLUSH 10ML SYR IVF ONE (06:30)
[2020-05-24] MEDS ORDERED: NITROGLYCERIN OINT 2%, 1GM TP ONE ×2 (06:30)
--- NOTE | 2020-05-24 06:30 | NUR ---
THIS IS A 75M BIB EMS FROM HOME, PT ROOMMATE CALLED EMS FOR L CHEST PAIN DENIES RADIATION/ N/V/D. UNK ONSET. PT IS A/O4 CONNECTED TO ALL MONITORING, VSS, PA AT BEDSIDE ERP AT BEDSIDE FOR EVAL.
--- NOTE | 2020-05-24 06:34 | NUR ---
NITRO APPLIED TO L CHEST AT THIS TIME. PT RESTING ON JUAN RAMIREZ.
[2020-05-24 06:36] LABS: BASOPHILS % (AUTO) 2 % (0-1); EOSINOPHILS % (AUTO) 3 % (1-7); LYMPHOCYTES % (AUTO) 15 % (22-44); MD NO; MEAN CORPUSCULAR HGB CONC 33.9 g/dL (33.2-36.2); MEAN PLATELET VOLUME 7.5 fL (7.4-10.4); MONOCYTES % (AUTO) 6 % (2-9); NEUTROPHILS % (AUTO) 75 % (42-75); PLATELET COUNT 341 x10^3/uL (130-400); RED BLOOD COUNT 2.71 x10^6/uL (4.38-5.82)
--- NOTE | 2020-05-24 06:45 | NUR ---
rec'd report from MEMO Rushing. pt resting in bed, appears in no acute distress.
[2020-05-24 06:47] LABS: ALANINE AMINOTRANSFERASE 28 U/L (12-78); ALBUMIN 3.5 g/dL (3.4-5.0); ANION GAP 5 mmol/L (5-15); CHLORIDE 111 mmol/L (98-107); CREATININE 1.11 mg/dL (0.7-1.3)
[2020-05-24 06:51] LABS: ALKALINE PHOSPHATASE 50 U/L (45-117); BILIRUBIN,TOTAL 0.3 mg/dL (0.2-1.0); TOTAL PROTEIN 6.2 g/dL (6.4-8.2)
--- NOTE | 2020-05-24 07:34 | NUR ---
PT TO CT
--- NOTE | 2020-05-24 07:47 | NUR ---
RETURNS FROM CTA
[2020-05-24] MEDS ORDERED: ENOXAPARIN 40 MG/0.4 ML ONE (07:49)
[2020-05-24] MEDS ORDERED: OMNIPAQUE 350 MG/ML, 75ML BOTTLE ONE (07:49)
[2020-05-24] MEDS ORDERED: ACETAMINOPHEN 325 MG TABLET PO PRN (08:00)
[2020-05-24] MEDS ORDERED: TRAZODONE 50MG TABLET PO PRN (08:00)
[2020-05-24] MEDS ORDERED: ONDANSETRON 2MG/ML, 2ML IVPush PRN (08:00)
[2020-05-24] MEDS ORDERED: ENOXAPARIN 40 MG/0.4 ML SQ SCH (08:00)
[2020-05-24] MEDS ORDERED: ENALAPRILAT 1.25 MG/ML, 2ML IVPush PRN (08:00)
[2020-05-24] MEDS ORDERED: morphine SULFATE 10 MG/ML, 1ML IVPush PRN (08:00)
[2020-05-24] MEDS ORDERED: ONDANSETRON ODT 4 MG PO PRN (08:00)
--- NOTE | 2020-05-24 08:15 | NUR ---
CRITICAL LAB: TROP 0.314 PT HAS LEFT ER. CALLED TO LET [facility]O ADAME OF TELE 5 KNOW.
[2020-05-24 08:16] LABS: TROPONIN I 0.314 ng/mL (0.000-0.045)
[2020-05-24 08:30] VITALS: BP 157/66
[2020-05-24] MEDS ORDERED: HEPARIN 5,000 UNITS/ML, 1ML IV ONE (09:30)
[2020-05-24] MEDS ORDERED: HEPARIN 5,000 UNITS/ML, 1ML IV PRN (09:30)
[2020-05-24] MEDS ORDERED: HEPARIN 25,000 UNITS/250ML PMX 250 ML IV PRN (09:30)
[2020-05-24] MEDS: ASPIRIN 81 MG TABLET CHEW PO SCH (10:30)
[2020-05-24 12:28] VITALS: BP 184/72
[2020-05-24 19:22] VITALS: BP 147/62
[2020-05-24] MEDS ORDERED: ATORVASTATIN 10 MG TABLET PO SCH (21:00)
[2020-05-24] MEDS: ATORVASTATIN 40 MG TABLET PO SCH (21:40)
[2020-05-25 01:45] VITALS: BP 145/61
[2020-05-25 04:48] LABS: BASOPHILS % (AUTO) 1 % (0-1); EOSINOPHILS % (AUTO) 4 % (1-7); LYMPHOCYTES % (AUTO) 20 % (22-44); MEAN CORPUSCULAR HEMOGLOBIN 30.5 pg (27.5-34.5); MEAN CORPUSCULAR HGB CONC 34.3 g/dL (33.2-36.2); MEAN PLATELET VOLUME 7.6 fL (7.4-10.4); MONOCYTES % (AUTO) 6 % (2-9); NEUTROPHILS % (AUTO) 68 % (42-75); PLATELET COUNT 294 x10^3/uL (130-400); RED BLOOD COUNT 2.29 x10^6/uL (4.38-5.82)
[2020-05-25 04:54] LABS: MD NO
[2020-05-25 04:56] LABS: ANION GAP 4 mmol/L (5-15); CALCIUM 8.7 mg/dL (8.5-10.1); CHLORIDE 112 mmol/L (98-107); CREATININE 1.14 mg/dL (0.7-1.3)
[2020-05-25 07:22] VITALS: BP 147/58
[2020-05-25] MEDS: ASPIRIN 81 MG TABLET CHEW PO SCH (08:51)
[2020-05-25] MEDS: METOPROLOL TARTRATE 25 MG TAB PO SCH (09:00)
[2020-05-25 14:25] VITALS: BP 125/68
[2020-05-25 20:05] VITALS: BP 157/65
[2020-05-25] MEDS: ATORVASTATIN 40 MG TABLET PO SCH (20:40)
[2020-05-26 00:24] VITALS: BP 157/74
[2020-05-26 07:05] VITALS: BP 171/64
[2020-05-26 08:00] VITALS: BP 154/70
[2020-05-26] MEDS: ASPIRIN 81 MG TABLET CHEW PO SCH (08:09)
[2020-05-26] MEDS: METOPROLOL TARTRATE 25 MG TAB PO SCH (08:10)
[2020-05-26] MEDS: ENALAPRIL 5MG TABLET PO SCH ×2 (10:04→20:25)
[2020-05-26 12:45] VITALS: BP 160/63
[2020-05-26 14:34] LABS: BASOPHILS % (AUTO) 1 % (0-1); EOSINOPHILS % (AUTO) 3 % (1-7); LYMPHOCYTES % (AUTO) 16 % (22-44); MEAN CORPUSCULAR HEMOGLOBIN 29.8 pg (27.5-34.5); MEAN CORPUSCULAR HGB CONC 33.7 g/dL (33.2-36.2); MEAN PLATELET VOLUME 7.7 fL (7.4-10.4); MONOCYTES % (AUTO) 6 % (2-9); NEUTROPHILS % (AUTO) 75 % (42-75); PLATELET COUNT 298 x10^3/uL (130-400); RED BLOOD COUNT 2.58 x10^6/uL (4.38-5.82); RED CELL DISTRIBUTION WIDTH 15.2 % (9.4-14.8)
[2020-05-26 14:40] LABS: MD NO
[2020-05-26 14:43] VITALS: BP 175/69
[2020-05-26 19:30] VITALS: BP 172/65
[2020-05-26] MEDS: ATORVASTATIN 40 MG TABLET PO SCH (20:24)
[2020-05-27 00:42] VITALS: BP 156/65
[2020-05-27 06:44] VITALS: BP 160/61
[2020-05-27] MEDS: ASPIRIN 81 MG TABLET CHEW PO SCH (08:31)
[2020-05-27] MEDS: ENALAPRIL 5MG TABLET PO SCH ×2 (08:31→20:31)
[2020-05-27] MEDS: METOPROLOL TARTRATE 25 MG TAB PO SCH (08:31)
[2020-05-27] MEDS ORDERED: SENNA/DOCUSATE TABLET PO PRN (09:00)
[2020-05-27] MEDS ORDERED: OXYcodone/APAP 5/325MG TABLET PO PRN (09:00)
[2020-05-27 13:08] VITALS: BP 127/60
[2020-05-27 19:01] VITALS: BP 181/69
[2020-05-27] MEDS: ATORVASTATIN 40 MG TABLET PO SCH (20:31)
[2020-05-28 01:12] VITALS: BP 136/51
[2020-05-28 07:06] VITALS: BP 127/63
[2020-05-28] MEDS: ASPIRIN 81 MG TABLET CHEW PO SCH (08:30)
[2020-05-28] MEDS: ENALAPRIL 5MG TABLET PO SCH ×2 (08:30→20:53)
[2020-05-28] MEDS: METOPROLOL TARTRATE 25 MG TAB PO SCH (08:30)
[2020-05-28 13:54] VITALS: BP 135/61
[2020-05-28 18:36] VITALS: BP 149/68
[2020-05-28] MEDS: ATORVASTATIN 40 MG TABLET PO SCH (20:53)
[2020-05-29] VITALS (8 sets, daily range): BP systolic 115–166; BP diastolic 54–79
[2020-05-29 08:37] LABS: BASOPHILS % (AUTO) 1 % (0-1); EOSINOPHILS % (AUTO) 2 % (1-7); LYMPHOCYTES % (AUTO) 19 % (22-44); MEAN CORPUSCULAR HGB CONC 33.5 g/dL (33.2-36.2); MEAN PLATELET VOLUME 7.9 fL (7.4-10.4); MONOCYTES % (AUTO) 6 % (2-9); NEUTROPHILS % (AUTO) 72 % (42-75); PLATELET COUNT 278 x10^3/uL (130-400); RED BLOOD COUNT 2.62 x10^6/uL (4.38-5.82)
[2020-05-29 08:38] LABS: MD NO
[2020-05-29 08:48] LABS: ANION GAP 8 mmol/L (5-15); CALCIUM 8.9 mg/dL (8.5-10.1); CHLORIDE 108 mmol/L (98-107); CREATININE 1.02 mg/dL (0.7-1.3)
[2020-05-29] MEDS: ASPIRIN 81 MG TABLET CHEW PO SCH (08:58)
[2020-05-29] MEDS: METOPROLOL TARTRATE 25 MG TAB PO SCH (08:58)
[2020-05-29] MEDS: ENALAPRIL 5MG TABLET PO SCH (08:58)
[2020-05-29] MEDS ORDERED: TRAM50TA2 PO (11:07)
[2020-05-29] MEDS ORDERED: ACET325T26 PO (11:07)
[2020-05-29] MEDS ORDERED: ENAL5TAB10 PO (11:07)
[2020-05-29] MEDS ORDERED: ASPI-963 PO (11:07)
[2020-05-29] MEDS ORDERED: ONDA4TAB13 PO (11:07)
[2020-05-29] MEDS ORDERED: SENN-211 PO (11:07)
[2020-05-29] MEDS ORDERED: ATOR40TA78 PO (11:07)
[2020-05-29] MEDS ORDERED: FLUT1AER PO (11:13)
[2020-05-29] MEDS ORDERED: DIPHENHYDRAMINE 12.5MG/5ML, 10ML UDC PO ONE (11:30)
[2020-05-29] MEDS ORDERED: ACETAMINOPHEN 325 MG TABLET PO ONE (11:30)
== END 2020-05-29 16:13 | DRG 281 ==
LOC: ED 06:24 → EDIP 07:38 → SUATTDRO 07:43 → 5SO 08:54 → 3N 05-26 14:34
PROVIDERS: ADMIT Hospitalist; ATTEND Internal Medicine
PROC: 30233N1 Transfusion of Nonautologous Red Blood Cells into Peripheral Vein, Percutaneous Approach (ICD-10-PCS; principal; 2020-05-29)
DX: I21.4 Non-ST elevation (NSTEMI) myocardial infarction (principal); R64 Cachexia; N02.9 Recurrent and persistent hematuria with unspecified morphologic changes; I50.32 Chronic diastolic (congestive) heart failure; Z68.1 Body mass index [BMI] 19.9 or less, adult; J44.9 Chronic obstructive pulmonary disease, unspecified; N31.9 Neuromuscular dysfunction of bladder, unspecified; I73.9 Peripheral vascular disease, unspecified; D64.9 Anemia, unspecified; E78.5 Hyperlipidemia, unspecified; H91.93 Unspecified hearing loss, bilateral; I11.0 Hypertensive heart disease with heart failure; I25.10 Atherosclerotic heart disease of native coronary artery without angina pectoris; I69.30 Unspecified sequelae of cerebral infarction; Z66 Do not resuscitate; Z87.442 Personal history of urinary calculi; Z93.59 Other cystostomy status; Z72.0 Tobacco use; Z51.5 Encounter for palliative care
CPT/HCPCS: 36415; 71045; 71275; 80048; 80053; 83690; 83735; 83880; 84484; 85014; 85018; 85025; 85379; 85520; 86850; 86900; 86923; 93005; 93306; G0378; J1650; Q9967; P9016

== ENCOUNTER 2020-07-02 19:05 | Emergency (ER) | payer OTHER ==
[~2020-07-02] VITALS: Ht 167.6 cm; Wt 52.0 kg
[~2020-07-02 19:05] MED LIST changes: +ACET325T26 PO; +ASPI-963 PO; +ATOR40TA78 PO; +ENAL5TAB10 PO; -OMEP40CA42 PO; +OMEP40CA8 PO; +ONDA4TAB13 PO; +SENN-211 PO; +SULF-23 PO; -SULF1TAB24 PO
--- NOTE | 2020-07-02 19:25 | NUR ---
BIBA CODE 3 FROM HIS HOME, SON CALLED 911 S/P DIFFICULTY BREATHING. UPON MEDIC ARRIVAL PT SON STATED HE HAD DNR/DNI ON FILE AT CO BUT NOT AT HOUSE. MEDIC PROCEEDED WITH ALS. PT INTUBATED, WENT TO V FIB X1 SHOCK, ROSC. PT ARRIVES WITH POSITIVE PULSES B/P 97/53. IO LEFT [facility]. X1 EPI PRE HOS[facility]ITAL GIVEN. SON ON WAY.
[2020-07-02 19:27] LABS: MEAN CORPUSCULAR HEMOGLOBIN 30.4 pg (27.5-34.5); MEAN CORPUSCULAR HGB CONC 32.8 g/dL (33.2-36.2); MEAN PLATELET VOLUME 7.5 fL (7.4-10.4); PLATELET COUNT 332 x10^3/uL (130-400); RED BLOOD COUNT 3.17 x10^6/uL (4.38-5.82); RED CELL DISTRIBUTION WIDTH 14.9 % (9.4-14.8)
--- NOTE | 2020-07-02 19:29 | NUR ---
drag out worker confirmed with [facility] pt D[facility]/DNI status, paperwork being faxed now. Son also on way with verbal as he is the DPA. POC per Dr Shipley to w/d care/comfort care upon confirmation of paperwork status.
[2020-07-02] MEDS ORDERED: SODIUM CHLORIDE FLUSH 10ML SYR IVF ONE (19:30)
[2020-07-02] MEDS ORDERED: MORPHINE SULFATE 4 MG/ML, 1ML IVPush ONE (19:30)
[2020-07-02 19:33] LABS: ALANINE AMINOTRANSFERASE 71 U/L (12-78); ALBUMIN 3.2 g/dL (3.4-5.0); ANION GAP 14 mmol/L (5-15); CALCIUM 8.5 mg/dL (8.5-10.1); CHLORIDE 110 mmol/L (98-107)
[2020-07-02] MEDS ORDERED: MORPHINE SULFATE 4 MG/ML, 1ML ONE (19:33)
[2020-07-02 19:38] LABS: ALKALINE PHOSPHATASE 111 U/L (45-117); BILIRUBIN,TOTAL 0.2 mg/dL (0.2-1.0); TOTAL PROTEIN 6.1 g/dL (6.4-8.2); TROPONIN I 0.042 ng/mL (0.000-0.045)
--- NOTE | 2020-07-02 19:53 | NUR ---
MEDICATED PER MAR
--- NOTE | 2020-07-02 19:53 | NUR ---
PT WAS EXTUBATED PER MD ORDERS, PT COMFORT CARE AT THIS TIME
[2020-07-02 20:03] VITALS: BP 131/66
[2020-07-02 20:03] LABS: INTERNATIONAL NORMALIZED RATIO 1.09 (0.93-1.1); PROTHROMBIN TIME 11.6 Seconds (9.6-11.5)
--- NOTE | 2020-07-02 20:07 | NUR ---
AWAITING ADMIT AT THIS TIME
[2020-07-02] MEDS ORDERED: ATROPINE OPHTH SOLN 1%, 5ML PO PRN (20:30)
[2020-07-02] MEDS ORDERED: ONDANSETRON 2MG/ML, 2ML IVPush PRN (20:30)
[2020-07-02] MEDS ORDERED: SCOPOLAMINE 1MG PATCH TD PRN (20:30)
[2020-07-02] MEDS ORDERED: LORazepam 2 MG/ML, 1ML IVPush PRN (20:30)
[2020-07-02] MEDS ORDERED: MORPHINE SULFATE 4 MG/ML, 1ML IVPush PRN (20:30)
[2020-07-02 20:42] LABS: BAND#(MANUAL) 0.41 x10^3/uL; BANDS%(MANUAL) 3 % (0-7); BASOS#(MANUAL) 0.14 x10^3/uL (0-0.1); BASOS% (MANUAL) 1 % (0-1); EOS#(MANUAL) 0.27 x10^3/uL (0.0-0.4); EOS% (MANUAL) 2 % (1-7); LYMPH#(MANUAL) 5.94 x10^3/uL (1-3.4); LYMPHS% (MANUAL) 44 % (22-44); METAMYELOCYTES# (MANUAL) 0.14 x10^3/uL (0-0); METAMYELOCYTES% (MANUAL) 1 % (0-1); MONOS#(MANUAL) 0.27 x10^3/uL (0.3-2.7); MONOS% (MANUAL) 2 % (2-9); MYELOCYTES# (MANUAL) 0.14 x10^3/uL (0-0); MYELOCYTES% (MANUAL) 1 % (0-0); REACTIVE LYMPHS # (MANUAL) 0.14 x10^3/uL (0-0); REACTIVE LYMPHS % (MANUAL) 1 % (0-0); SEG#(MANUAL) 6.08 x10^3/uL (1.8-6.8); SEGS% (MANUAL) 45 % (42-75)
[2020-07-02 20:43] LABS: ANISOCYTOSIS 1+; ECHINOCYTES 1+; OVALOCYTES 1+
[2020-07-02 20:44] LABS: <PLATELET ESTIMATE> ADEQUATE; <PLT MORPHOLOGY> NORMAL PLT MORPH
--- NOTE | 2020-07-02 21:03 | NUR ---
pt at 2049 on this night. 2 RN prounce; myself and Lisbeth Mathis RN. RN prouncement of dorm signed and filed with paper chart. ERP Dr. Shipley informed.
--- NOTE | 2020-07-02 21:13 | NUR ---
[facility] examiner office notifed. denied by william morton due to natural disease/ pt DNR
--- NOTE | 2020-07-02 21:24 | NUR ---
donor network notified at 2119. denied by Raj Coughlin with reference number [id number]
--- NOTE | 2020-07-02 21:25 | NUR ---
pt KATE was at bedside at time of , Emmett Connor. reports that pt is a [employer] of the [place] [employer] and would like [facility] help [facility]. KATE phone number [phone]
--- NOTE | 2020-07-02 22:11 | NUR ---
pt taken to [facility], toe tag applied. mortuary form given to housekeeping staff.
== END 2020-07-02 22:13 | disposition expired ==
LOC: MERGE 19:05 → ED 21:21
DX: I46.9 Cardiac arrest, cause unspecified (principal); J96.02 Acute respiratory failure with hypercapnia; J44.1 Chronic obstructive pulmonary disease with (acute) exacerbation; R00.0 Tachycardia, unspecified; D64.9 Anemia, unspecified; E87.2 Acidosis; D72.829 Elevated white blood cell count, unspecified; I10 Essential (primary) hypertension; K21.9 Gastro-esophageal reflux disease without esophagitis; I73.9 Peripheral vascular disease, unspecified; G81.94 Hemiplegia, unspecified affecting left nondominant side; I48.91 Unspecified atrial fibrillation; H91.90 Unspecified hearing loss, unspecified ear; R06.02 Shortness of breath; Z86.73 Personal history of transient ischemic attack (TIA), and cerebral infarction without residual deficits
CPT/HCPCS: 31500; 36600; 71045; 80053; 82803; 83605; 83880; 84484; 85025; 85610; 85730; 87040; 92950; 93005; 96374; 99285; J2270; 94002